=== PATIENT | male | born 1965 | race Caucasian/White ===

== ENCOUNTER → 2024-04-08 | Outpatient (CLI) | payer BC ==
[2024-04-08 15:18] LABS: BASOPHILS ABSOLUTE AUTO 0.04 K/mm3 (0.00-0.23); BASOPHILS PERCENT AUTO 1 % (0-2); EOSINOPHILS ABSOLUTE AUTO 0.15 K/mm3 (0.00-0.68); EOSINOPHILS PERCENT AUTO 2 % (0-6); Hematocrit 46.5 % (37.0-53.0); Hemoglobin 16.3 g/dL (13.5-17.5); IMMATURE GRAN ABSOLUTE AUTO 0.03 K/mm3 (0.00-0.10); IMMATURE GRAN PERCENT AUTO 1 % (0-1); LYMPHOCYTES ABSOLUTE AUTO 1.63 K/mm3 (0.84-5.20); LYMPHOCYTES PERCENT AUTO 25 % (21-46); MONOCYTES ABSOLUTE AUTO 0.53 K/mm3 (0.16-1.47); MONOCYTES PERCENT AUTO 8 % (4-13); Mean Corpuscular HGB 29.4 pg (26.0-34.0); Mean Corpuscular HGB Conc 35.1 g/dL (31.5-36.5); Mean Corpuscular Volume 84 fL (80-100); Mean Platelet Volume 10.8 fL (9.1-12.4); NEUTROPHILS ABSOLUTE AUTO 4.16 K/mm3 (1.96-9.15); NEUTROPHILS PERCENT AUTO 64 % (41-73); Platelet Count 285 K/mm3 (150-400); RDW Coefficient Variation 12.6 % (11.7-14.2); RDW Standard Deviation 38.3 fL (35.1-46.3); Red Blood Cell Count 5.55 M/mm3 (4.30-5.90); White Blood Cell Count 6.54 K/mm3 (4.00-11.30)
[2024-04-08 15:21] LABS: Alanine Aminotransfer (ALT/SGP 19 U/L (12-78); Albumin, Blood 4.3 g/dL (3.4-5.0); Albumin/Globulin Ratio 1.3 (0.8-1.8); Alk Phos 113 U/L (50-136); Anion Gap 10 mmol/L (3-11); Aspartate Aminotrans (AST/SGOT 13 U/L (12-37); Bilirubin, Total 0.6 mg/dL (0.1-1.0); Blood Urea Nitrogen 16 mg/dL (8-24); Bun/Creatinine Ratio 16.3 (12.0-20.0); CHOL/HDL RATIO 4.5; CO2, Blood 27 mmol/L (21-32); Calcium, Blood 8.9 mg/dL (8.5-10.1); Chloride, Blood 107 mmol/L (98-108); Cholesterol 303 mg/dL (50-200); Creatinine, Blood 0.98 mg/dL (0.60-1.20); Globulin, Blood 3.2 g/dL (2.2-4.0); Glomerular Filtration Rate 89 (60-); Glucose, Blood 105 mg/dL (70-99); HDL Cholesterol 68 mg/dL (>39); LDL/HDL RATIO 3.2; Low Density Lipoprotein Chol 216 mg/dL (0-110); Potassium, Blood 3.5 mmol/L (3.5-5.5); Sodium, Blood 140 mmol/L (136-145); Total Protein, Blood 7.5 g/dL (6.4-8.2); Triglycerides 96 mg/dL (30-160); Very Low Density Lipoprot Chol 19 mg/dL (6-32)
== END ==
LOC: LAB SHORT 13:49 → LAB 13:49
PROVIDERS: Internal Medicine
DX: I10 Essential (primary) hypertension (principal)
CPT/HCPCS: 80053; 80061; 85025

== ENCOUNTER → 2024-04-08 | Outpatient (CLI) | payer BC | LOC: LAB 14:30 → LAB SHORT 14:30 | DX: D22.5 Melanocytic nevi of trunk (principal) | CPT/HCPCS: 88305; 88342 ==

== ENCOUNTER 2024-05-29 09:49 | Inpatient (IN) | payer BC ==
[~2024-05-29] VITALS: Ht 175.3 cm; Wt 88.4 kg
[2024-05-29] MEDS ORDERED: ATORVASTATIN CA20 MG PO (10:04)
[2024-05-29] MEDS ORDERED: HYDCHL25 PO (10:05)
[2024-05-29] MEDS ORDERED: LOSA50 PO (10:05)
[2024-05-29 10:26] LABS: BASOPHILS ABSOLUTE AUTO 0.04 K/mm3 (0.00-0.23); BASOPHILS PERCENT AUTO 0 % (0-2); EOSINOPHILS ABSOLUTE AUTO 0.22 K/mm3 (0.00-0.68); EOSINOPHILS PERCENT AUTO 2 % (0-6); Hematocrit 43.9 % (37.0-53.0); Hemoglobin 15.2 g/dL (13.5-17.5); IMMATURE GRAN ABSOLUTE AUTO 0.03 K/mm3 (0.00-0.10); IMMATURE GRAN PERCENT AUTO 0 % (0-1); LYMPHOCYTES ABSOLUTE AUTO 1.87 K/mm3 (0.84-5.20); LYMPHOCYTES PERCENT AUTO 21 % (21-46); MONOCYTES ABSOLUTE AUTO 0.66 K/mm3 (0.16-1.47); MONOCYTES PERCENT AUTO 7 % (4-13); Mean Corpuscular HGB 29.2 pg (26.0-34.0); Mean Corpuscular HGB Conc 34.6 g/dL (31.5-36.5); Mean Corpuscular Volume 84 fL (80-100); Mean Platelet Volume 10.1 fL (9.1-12.4); NEUTROPHILS ABSOLUTE AUTO 6.22 K/mm3 (1.96-9.15); NEUTROPHILS PERCENT AUTO 69 % (41-73); Platelet Count 283 K/mm3 (150-400); RDW Coefficient Variation 12.2 % (11.7-14.2); RDW Standard Deviation 37.1 fL (35.1-46.3); Red Blood Cell Count 5.21 M/mm3 (4.30-5.90); White Blood Cell Count 9.04 K/mm3 (4.00-11.30)
[2024-05-29 10:49] LABS: Albumin, Blood 3.9 g/dL (3.4-5.0); Albumin/Globulin Ratio 1.3 (0.8-1.8); Bilirubin, Total 0.4 mg/dL (0.1-1.0); Bun/Creatinine Ratio 17.1 (12.0-20.0); Calcium, Blood 9.1 mg/dL (8.5-10.1); Creatinine, Blood 0.94 mg/dL (0.60-1.20); Globulin, Blood 3.1 g/dL (2.2-4.0); Potassium, Blood 3.2 mmol/L (3.5-5.5)
[2024-05-29] MEDS ORDERED: Nitroglycerin 0.4 MG SUBL SL ONE (11:25)
[2024-05-29] MEDS ORDERED: Aspirin 81 MG Chew PO ONE ×2 (11:25→13:00)
[2024-05-29] MEDS ORDERED: Potassium Chloride 20 MEQ TabCR PO ONE (11:35)
[2024-05-29] MEDS ORDERED: Magnesium Oxide 400 MG Tab PO ONE (11:35)
[2024-05-29] MEDS ORDERED: Dose Adjust by Pharmacy XX STA (13:49)
[2024-05-29] MEDS ORDERED: Heparin Sodium,Porcine/0.5 NS 500 ML IV SCH (13:50)
[2024-05-29] MEDS ORDERED: Heparin Sodium 5000 Units/ML 1ML MDV IV ONE (13:50)
[2024-05-29 13:52] LABS: Anti-Xa UFH, PHA Monitoring <0.10 IU/mL; International Normalized Ratio 1.02; Prothrombin Time Results 10.9 Sec (9.7-11.5)
[2024-05-29] MEDS ORDERED: Atorvastatin 40 MG Tab PO SCH (15:00)
[2024-05-29 15:47] VITALS: BP 180/104
[2024-05-29] MEDS ORDERED: Nicotine Polacrilex 2 MG Gum PO PRN (16:15)
[2024-05-29] MEDS ORDERED: Metoprolol Tartrate 25 MG Tab PO ONE (16:45)
--- NOTE | 2024-05-29 18:23 | NUR ---
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 Denies chest pain or pressure upon assessment, heparin infusing per EMAR, NPO at 0000 for possible angiogram on 05/30/24. Patient independent in room, May at bedside, patient oriented to the room and call light is within reach.
[2024-05-29 19:59] VITALS: BP 156/82
[2024-05-29] MEDS ORDERED: Metoprolol Tartrate 25 MG Tab PO SCH ×2 (21:00→23:00)
[2024-05-30] VITALS (16 sets, daily range): BP systolic 104–163; BP diastolic 58–105
--- NOTE | 2024-05-30 01:09 | NUR ---
SHIFT SUMMARY- TROPS PEAKED 3803 HEPARIN GTT RUNNING, NO COMPLAINTS OF CP, SOB OR CHEST TIGHTNESS. NORMOTENSIVE. HR 70'S-80'S. PT NPO SINCE MIDNIGHT. OTHER BODY SYSTEMS WNL.
[2024-05-30 03:24] LABS: Hematocrit 40.6 % (37.0-53.0); Hemoglobin 13.9 g/dL (13.5-17.5); Mean Corpuscular HGB Conc 34.2 g/dL (31.5-36.5); Mean Corpuscular Volume 85 fL (80-100); Mean Platelet Volume 10.1 fL (9.1-12.4); Platelet Count 277 K/mm3 (150-400); RDW Coefficient Variation 12.3 % (11.7-14.2); RDW Standard Deviation 38.3 fL (35.1-46.3); Red Blood Cell Count 4.79 M/mm3 (4.30-5.90); White Blood Cell Count 10.18 K/mm3 (4.00-11.30)
[2024-05-30 03:46] LABS: Alanine Aminotransfer (ALT/SGP 22 U/L (12-78); Albumin, Blood 3.3 g/dL (3.4-5.0); Albumin/Globulin Ratio 1.1 (0.8-1.8); Alk Phos 91 U/L (50-136); Anion Gap 9 mmol/L (3-11); Aspartate Aminotrans (AST/SGOT 32 U/L (12-37); Bilirubin, Total 0.4 mg/dL (0.1-1.0); Blood Urea Nitrogen 18 mg/dL (8-24); Bun/Creatinine Ratio 18.6 (12.0-20.0); CHOL/HDL RATIO 3.1; CO2, Blood 24 mmol/L (21-32); Calcium, Blood 8.3 mg/dL (8.5-10.1); Chloride, Blood 107 mmol/L (98-108); Cholesterol 180 mg/dL (50-200); Creatinine, Blood 0.97 mg/dL (0.60-1.20); Glomerular Filtration Rate 89 (60-); Glucose, Blood 107 mg/dL (70-99); HDL Cholesterol 59 mg/dL (>39); LDL/HDL RATIO 1.8; Low Density Lipoprotein Chol 109 mg/dL (0-110); Potassium, Blood 3.4 mmol/L (3.5-5.5); Sodium, Blood 137 mmol/L (136-145); Total Protein, Blood 6.3 g/dL (6.4-8.2); Triglycerides 61 mg/dL (30-160); Very Low Density Lipoprot Chol 12 mg/dL (6-32)
[2024-05-30] MEDS ORDERED: Dose Adjust by Pharmacy XX STA (03:52)
[2024-05-30] MEDS ORDERED: Potassium Chloride 20 MEQ TabCR PO ONE (05:25)
[2024-05-30] MEDS ORDERED: NS 250 ML IV ONE (08:03)
[2024-05-30] MEDS ORDERED: Heparin Sodium 1000 Units/ML 10ML MDV ONE ×2 (08:03→09:36)
[2024-05-30] MEDS ORDERED: Verapamil HCL 2.5 MG/ML 2ML Injection ONE (08:03)
[2024-05-30] MEDS ORDERED: Nitroglycerin 2 MG/20 ML BTL ONE (08:03)
[2024-05-30] MEDS ORDERED: NS 1,000 ML IV ONE ×2 (08:03→08:36)
[2024-05-30] MEDS ORDERED: FentaNYL Citrate 50 MCG/ML 2 ML Injection ONE ×2 (08:36→08:56)
[2024-05-30] MEDS ORDERED: Midazolam HCl 1MG / ML 2ML Vial ONE ×2 (08:36→08:56)
[2024-05-30] MEDS ORDERED: Aspirin 81 MG Chew PO SCH (09:00)
[2024-05-30] MEDS ORDERED: Losartan Potassium 50 MG Tab PO SCH (09:00)
[2024-05-30] MEDS ORDERED: prasugrel HCL 10 MG TABLET PO ONE (09:10)
[2024-05-30] MEDS ORDERED: Nitroglycerin 0.4 MG SUBL SL PRN (09:45)
[2024-05-30] MEDS ORDERED: NS 1,000 ML IV SCH (09:45)
--- NOTE | 2024-05-30 11:28 | NUR ---
MORNING SUMMARY THE PT IS A&OX4, IND IN THE ROOM, AND IS ABLE TO MAKE HIS NEEDS KNOWN. AT THE BEGINNING OF THE SHIFT THE PT WENT FOR AN AGNIOGRAM W/ DR. GILLETTE. HE CAME BACK FORM ANGIOGRAM AROUND 0950. RIGHT RADIAL ACCESS WITH A TRBAND INTACT W/ 12CC OF AIR IN THE BALLOON. PT HAS PCI TO PROXIMAL LAD, STENT CARD WAS GIVEN TO THE PT'S SPOUSE. THE PT HAS BEEN SR ON TELE, BP STABLE. AND SP02 >93% ON RA. ECHO COMPLETED, 1 HR POST PCI EKG COMPLETED, AND EDUCATION PROVIDED TO THE PT AND FAMILY ABOUT RIGHT WRIST RESTRICTIONS. NS RUNNING POST ANGIOGRAM AT 75ML/HR. TR BAND RECOVERY PER PROTOCOL. SEE NOTES FOR UPDATES.
[2024-05-30] MEDS ORDERED: Acetaminophen 325 MG TABLET PO PRN (13:25)
--- NOTE | 2024-05-30 14:49 | NUR ---
TR BAND RECOVERY THE PT'S RIGHT RADIAL TR BAND HAS BEEN FULLY RECOVERED, W/O ANY ISSUES. SITE W/O HEMTOMA OR BLEEDING. SOME TENDERNESS AT PUNCTURE SITE, AND SCANT BRUISING. SITE CLEANED WITH CHG WIPE AND TEGADERM INTACT. THE ARM BOARD WAS PLACED TO REMIND THE PT TO NOT USE HIS RIGHT WRIST. EDUCATION PROVIDED TO THE PT, HIS , AND THE DAUGHTER, VITAL SIGNS REMAIN STABLE. PT WITHOUT ANY ANGINA OR CHEST PRESSURE. SEE NOTES FOR UPDATES.
--- NOTE | 2024-05-30 16:37 | NUR ---
Pt alert, oriented x's 4. As requested, POLST and AD left in room with pt. He states he does not require assistance filling them out. Bedside RN aware. Pt declines any further need.
--- NOTE | 2024-05-30 16:46 | NUR ---
END OF SHIFT SUMMARY NO ACUTE EVENTS THIS AFTERNOON. TR BAND IS FULLY RECOVERED. TEGADERM C/D/I ARM BOARD IN PLACE. THE PT IS A&oX4, IND IN THE ROOM, AND MAKES HIS NEEDS KNOWN. SR ON TELE. BP STABLE. SP02 >93% ON RA. FAMILY AT BEDSIDE AND UPDATES ON CARE. SEE NOTES FOR ANY UDPATES.
[2024-05-31 04:39] VITALS: BP 165/86
[2024-05-31 04:45] LABS: Bun/Creatinine Ratio 17.1 (12.0-20.0); Calcium, Blood 8.3 mg/dL (8.5-10.1); Magnesium, Blood 2.3 mg/dL (1.6-2.4); Phosphorus, Blood 3.3 mg/dL (2.5-4.9); Potassium, Blood 3.7 mmol/L (3.5-5.5)
[2024-05-31 08:23] VITALS: BP 152/92
[2024-05-31] MEDS ORDERED: Aspirin 81 MG TabEC PO SCH (09:00)
[2024-05-31] MEDS ORDERED: Metoprolol Tartrate 50 MG Tab PO SCH (09:00)
[2024-05-31] MEDS ORDERED: Enoxaparin 40 MG/0.4 ML SYR SC SCH (09:00)
[2024-05-31] MEDS ORDERED: prasugrel HCL 10 MG TABLET PO SCH (09:00)
[2024-05-31] MEDS ORDERED: Losartan Potassium 50 MG Tab PO SCH (09:00)
[2024-05-31] MEDS ORDERED: LOSA50 PO (10:30)
[2024-05-31] MEDS ORDERED: ATOR80 PO (10:30)
[2024-05-31] MEDS ORDERED: METO50 PO (10:31)
[2024-05-31] MEDS ORDERED: ASPIR 8181 M1 PO (10:31)
[2024-05-31] MEDS ORDERED: NITR.4SL SL (10:31)
[2024-05-31] MEDS ORDERED: EFFIENT10 MG PO (10:32)
--- NOTE | 2024-05-31 10:50 | NUR ---
DISCHARGE NOTE: PT VERBALIZED UNDERSTANDING OF DISCHARGE INSTRUCTIONS. PT EDUCATED TO FOLLOW UP WITH PCP AND CARDIOLOGY, AND TO TAKE MEDICATIONS PRESCRIBED. PIVS AND TELE REMOVED. AT BEDSIDE FOR DC INSTRUCTIONS. NO CHANGES ON R RADIAL SITE. PT EDUCATED ON AFTERCARE.
== END 2024-05-31 10:54 | disposition home or self-care (01) | DRG 322 ==
LOC: ER 09:49 → PCU 14:17 → ERHOLD 14:17 → PCU 16:35
PROVIDERS: Emergency Medicine; Student in an Organized Health Care Education/Training Program; ADMIT Internal Medicine
PROC: 027034Z Dilation of Coronary Artery, One Artery with Drug-eluting Intraluminal Device, Percutaneous Approach (ICD-10-PCS; principal; 2024-05-30)
PROC: B2101ZZ Fluoroscopy of Single Coronary Artery using Low Osmolar Contrast (ICD-10-PCS; 2024-05-30)
PROC: B2111ZZ Fluoroscopy of Multiple Coronary Arteries using Low Osmolar Contrast (ICD-10-PCS; 2024-05-30)
DX: I21.4 Non-ST elevation (NSTEMI) myocardial infarction (principal); I10 Essential (primary) hypertension; E78.5 Hyperlipidemia, unspecified; E87.6 Hypokalemia; I25.10 Atherosclerotic heart disease of native coronary artery without angina pectoris; E78.00 Pure hypercholesterolemia, unspecified; I48.91 Unspecified atrial fibrillation; R73.9 Hyperglycemia, unspecified; I16.0 Hypertensive urgency; F17.220 Nicotine dependence, chewing tobacco, uncomplicated; Z71.6 Tobacco abuse counseling
CPT/HCPCS: 36415; 71046; 76937; 80048; 80053; 80061; 83036; 83735; 84100; 84484; 85025; 85027; 85347; 85379; 85520; 85610; 93005; 93010; 93306; 93454; 99152; 99153; 99285-25; A9270; C1725; C1769; C1874; C1887; C1894; C9600; J1644; J2250; J3010; J7030; J7050; Q9967

== ENCOUNTER 2024-06-03 12:23 | Emergency (ER) | payer BC ==
[~2024-06-03] VITALS: Ht 175.3 cm; Wt 89.4 kg
[~2024-06-03 12:23] MED LIST: ASPIR 8181 M1 PO; ATOR80 PO; ATORVASTATIN CA20 MG PO; EFFIENT10 MG PO; HYDCHL25 PO; LOSA50 PO; METO50 PO; NITR.4SL SL
[2024-06-03 13:06] LABS: BASOPHILS ABSOLUTE AUTO 0.05 K/mm3 (0.00-0.23); BASOPHILS PERCENT AUTO 0 % (0-2); EOSINOPHILS ABSOLUTE AUTO 0.21 K/mm3 (0.00-0.68); EOSINOPHILS PERCENT AUTO 2 % (0-6); Hemoglobin 16.1 g/dL (13.5-17.5); IMMATURE GRAN ABSOLUTE AUTO 0.05 K/mm3 (0.00-0.10); IMMATURE GRAN PERCENT AUTO 0 % (0-1); LYMPHOCYTES ABSOLUTE AUTO 2.07 K/mm3 (0.84-5.20); LYMPHOCYTES PERCENT AUTO 18 % (21-46); MONOCYTES ABSOLUTE AUTO 1.05 K/mm3 (0.16-1.47); MONOCYTES PERCENT AUTO 9 % (4-13); Mean Corpuscular HGB 29.3 pg (26.0-34.0); Mean Corpuscular Volume 84 fL (80-100); Mean Platelet Volume 9.7 fL (9.1-12.4); NEUTROPHILS ABSOLUTE AUTO 8.31 K/mm3 (1.96-9.15); NEUTROPHILS PERCENT AUTO 71 % (41-73); Platelet Count 307 K/mm3 (150-400); RDW Coefficient Variation 12.5 % (11.7-14.2); RDW Standard Deviation 37.4 fL (35.1-46.3); White Blood Cell Count 11.74 K/mm3 (4.00-11.30)
[2024-06-03 13:28] LABS: Albumin, Blood 3.9 g/dL (3.4-5.0); Albumin/Globulin Ratio 1.2 (0.8-1.8); Bilirubin, Total 0.5 mg/dL (0.1-1.0); Bun/Creatinine Ratio 15.7 (12.0-20.0); Calcium, Blood 8.7 mg/dL (8.5-10.1); Creatinine, Blood 1.53 mg/dL (0.60-1.20); Globulin, Blood 3.3 g/dL (2.2-4.0); Potassium, Blood 3.8 mmol/L (3.5-5.5); Total Protein, Blood 7.2 g/dL (6.4-8.2)
[2024-06-03] MEDS ORDERED: NS 1,000 ML IV SCH (14:40)
== END 2024-06-03 17:41 | disposition home or self-care (01) ==
LOC: ER 12:23
PROVIDERS: Student in an Organized Health Care Education/Training Program
DX: N17.9 Acute kidney failure, unspecified (principal); E87.1 Hypo-osmolality and hyponatremia; Z79.899 Other long term (current) drug therapy; I10 Essential (primary) hypertension
CPT/HCPCS: 71046; 80053; 83735; 84484; 85025; 93005; 93010; 99284-25; J7030

== ENCOUNTER 2024-10-06 06:03 | Emergency (ER) | payer OTHER ==
[~2024-10-06] VITALS: Ht 175.3 cm; Wt 90.7 kg
[2024-10-06 06:45] LABS: BASOPHILS ABSOLUTE AUTO 0.05 K/mm3 (0.00-0.23); BASOPHILS PERCENT AUTO 1 % (0-2); EOSINOPHILS ABSOLUTE AUTO 0.20 K/mm3 (0.00-0.68); EOSINOPHILS PERCENT AUTO 2 % (0-6); Hematocrit 35.8 % (37.0-53.0); Hemoglobin 12.7 g/dL (13.5-17.5); IMMATURE GRAN ABSOLUTE AUTO 0.05 K/mm3 (0.00-0.10); IMMATURE GRAN PERCENT AUTO 1 % (0-1); LYMPHOCYTES ABSOLUTE AUTO 1.47 K/mm3 (0.84-5.20); LYMPHOCYTES PERCENT AUTO 14 % (21-46); MONOCYTES ABSOLUTE AUTO 0.64 K/mm3 (0.16-1.47); MONOCYTES PERCENT AUTO 6 % (4-13); Mean Corpuscular HGB Conc 35.5 g/dL (31.5-36.5); Mean Corpuscular Volume 84 fL (80-100); NEUTROPHILS ABSOLUTE AUTO 8.49 K/mm3 (1.96-9.15); NEUTROPHILS PERCENT AUTO 78 % (41-73); NRBC ABSOLUTE 0.00 K/mm3 (0.00-0.02); NRBC Auto 0.0 /100 WBC (0.0-0.2); RDW Coefficient Variation 12.2 % (11.7-14.2); RDW Standard Deviation 37.2 fL (35.1-46.3)
[2024-10-06 06:53] LABS: Alanine Aminotransfer (ALT/SGP 20.0 U/L (12-78); Albumin, Blood 3.6 g/dL (3.4-5.0); Albumin/Globulin Ratio 1.2 (0.8-1.8); Anion Gap 11.0 mmol/L (3-11); Aspartate Aminotrans (AST/SGOT 18.0 U/L (12-37); Bilirubin, Total 0.5 mg/dL (0.1-1.0); Blood Urea Nitrogen 16.0 mg/dL (8-24); CO2, Blood 23.0 mmol/L (21-32); Calcium, Blood 7.9 mg/dL (8.5-10.1); Chloride, Blood 108.0 mmol/L (98-108); Creatinine, Blood 1.09 mg/dL (0.60-1.20); Globulin, Blood 2.9 g/dL (2.2-4.0); Glucose, Blood 98.0 mg/dL (70-99); Potassium, Blood 3.7 mmol/L (3.5-5.5); Sodium, Blood 138.0 mmol/L (136-145); Total Protein, Blood 6.5 g/dL (6.4-8.2)
[2024-10-06 07:05] LABS: Platelet Count 183 K/mm3 (150-400)
== END 2024-10-06 09:19 | disposition home or self-care (01) ==
LOC: ER 06:03
PROVIDERS: Student in an Organized Health Care Education/Training Program
DX: R07.9 Chest pain, unspecified (principal); M54.2 Cervicalgia; I48.91 Unspecified atrial fibrillation; I10 Essential (primary) hypertension; Z79.82 Long term (current) use of aspirin; Z79.899 Other long term (current) drug therapy
CPT/HCPCS: 71045; 80053; 84484; 85025; 85379; 93005; 93010; 99285-25